=== PATIENT | female | born 1945 | race Hispanic/Latino ===

== ENCOUNTER → 2018-12-08 | Outpatient (CLI) | payer OTHER, MEDICARE ==
[~2018-12-08] VITALS: Ht 154.9 cm; Wt 59.0 kg
[~2018-12-08] MED LIST: REGADENOSON 0.4 MG/5 ML PF SYG IVP SCH
== END | disposition home or self-care (01) ==
LOC: SHCH 07:34
PROVIDERS: ATTEND Internal Medicine Cardiovascular Disease
DX: I25.9 Chronic ischemic heart disease, unspecified (principal); I25.10 Atherosclerotic heart disease of native coronary artery without angina pectoris
CPT/HCPCS: 78452; 93017; 96374; A9500 ×2; J2785

== ENCOUNTER 2024-11-28 15:50 | Emergency (ER) | payer OTHER, MEDICARE ==
[~2024-11-28] VITALS: Ht 157.5 cm; Wt 61.2 kg
[2024-11-28 17:27] LABS: BASOPHILS # (AUTO) 0.04 K/uL (0.00-0.20); BASOPHILS % (AUTO) 0.5 % (0.0-5.0); EOSINOPHILS # (AUTO) 0.21 K/uL (0.00-0.70); EOSINOPHILS % (AUTO) 2.9 % (0.0-8.0); HEMATOCRIT 36.6 % (36-48); IMMATURE GRANULOCYTE ABSOLUTE 0.02 K/uL (0-1); LYMPHOCYTES # (AUTO) 2.2 K/uL (1.0-4.8); LYMPHOCYTES % (AUTO) 30.3 % (21.0-51.0); MEAN CORPUSCULAR HEMOGLOBIN 26.9 pg (27.0-33.0); MEAN CORPUSCULAR HGB CONC 31.1 g/dL (32.0-36.0); MEAN CORPUSCULAR VOLUME 86.3 fL (79-99); MONOCYTES # (AUTO) 0.8 K/uL (0.1-1.0); MONOCYTES % (AUTO) 10.9 % (3.0-13.0); NEUTROPHILS # (AUTO) 4.1 K/uL (1.8-7.7); NEUTROPHILS % (AUTO) 55.1 % (40.0-77.0); PLATELET COUNT (AUTO) 232 K/uL (130-400); RED BLOOD CELL COUNT(AUTO) 4.24 MIL/uL (4.00-5.50); RED CELL DISTRIBUTION WIDTH 14.4 % (11.0-15.5); WHITE BLOOD COUNT (AUTO) 7.4 K/uL (4.8-10.8)
--- NOTE | 2024-11-28 17:30 | ERN ---
General Chief Complaint: Hand Problem/Injury Stated Complaint: SWOLLEN RIGHT HAND Time Seen by MD: 16:00 History of Present Illness Initial Comments This is a case of a 78-year-old female with a past medical history of diabetes mellitus, arthritis, high cholesterol, CAD who presented to the ER with the complaints of constant right hand swelling and pain since 1 month. She states that she has been diagnosed with carpal tunnel syndrome past month and was given corticosteroid shots for pain which provided no relief. She also mentioned experiencing intermittent neck pain. She denies fever, chills, headache, nausea, vomiting, chest pain, palpitations, abdominal pain, constipation/diarrhea, numbness/tingling sensations in all extremities. Allergies: Coded Allergies: No Known Drug Allergies (Unverified Allergy, Unknown, 12/07/18) Past Medical History Past Medical History: Arthritis Past Surgical History: Other ROS Dictation CONSTITUTIONAL: No chills, no fever, no weakness, no diaphoresis, no malaise, right hand swelling and pain. HEAD/FACE: No signs of trauma. EENT: No eye pain, no blurred vision, no tearing, no double vision, no ear pain, no ear discharge, no nose pain, no nasal congestion, no throat pain, no throat swelling, no mouth pain. RESPIRATORY: No cough, no orthopnea, no SOB, no stridor, no wheezing. CARDIOVASCULAR: No chest pain, no edema, no palpitations, no syncope. GASTROINTESTINAL/ABDOMINAL: No abdominal pain, no constipation, no diarrhea, no nausea, no vomiting. GENITOURINARY: No abnormal discharge, no dysuria, no frequent urination, no hematuria. No complaints of pain in the genitals. MUSCULOSKELETAL: No back pain, no gout, no joint pain, no joint swelling, no muscle pain, no muscle stiffness, intermittent mild neck pain. INTEGUMENTARY: No change in color, no change in hair/nails, no dryness, no lesion, no lumps, no rash. NEUROLOGICAL/PSYCH: No anxiety, not depressed, no emotional problem, no headache, no numbness, no pre-existing deficit, no history of seizures, no tremors, no weakness. HEMATOLOGIC/LYMPHATIC: Not anemic, no history of blood clots, no apparent bleeding, no bruising, glands not swollen. All Systems Negative, Except as Noted. Physical Exam Physical Exam Dictation Physical Exam Dictation VITAL SIGNS: Reviewed. GENERAL APPEARANCE: Alert, oriented x3, no acute distress HEAD AND FACE: Non-traumatic. EYES: PERRL, pink conjunctivas, eyelid no trauma, anterior chamber clear. EARS: Pinnas intact and no signs of trauma or erythema. Ear canals clear and no discharge. TMs no erythema. NOSE: No discharge, no bleeding. OROPHARYNX: Mouth normal, teeth no caries, tongue pink. Pharynx clear, no erythema. Tonsils no exudates, no abscesses noted. Mucous membrane moist. NECK: Supple, non-tender, no thyromegaly, no masses, no JVD, no bruits. BREAST: Deferred. CHEST: No tenderness, no crepitus, no paradoxical movement, no retractions. LUNGS: Clear, well-ventilated, symmetric, no rales, no wheezing, no rhonchi, no stridor, good breath sounds bilaterally. HEART: Regular rate, regular rhythm, no murmur, no gallops. VASCULAR: No peripheral edema. ABDOMEN: Soft, positive bowel sounds, nondistended, no guarding, nontender, no rebound, no masses no hepatomegaly, no splenomegaly, no Denney's sign, no hernias. RECTAL: Deferred. GENITAL: Deferred. NEUROLOGICAL: Normal speech, gross motor function intact, gross sensory function intact. MUSCULOSKELETAL: Neck nontender, full range of motion, back nontender, full range of motion. EXTREMITIES: Right hand swelling, paleness noted , full range of motion. SKIN: Color pink, dry, no turgor, no rash, no lacerations, no abrasions, no contusions. LYMPHATICS: Deferred. Results Laboratory and Microbiology Lab and Micro Result Laboratory Tests Test 11/28/24 17:20 White Blood Count 7.4 K/uL (4.8-10.8) Red Blood Count 4.24 MIL/uL (4.00-5.50) Hemoglobin 11.4 g/dL (12.0-16.0) L Hematocrit 36.6 % (36-48) Mean Corpuscular Volume 86.3 fL (79-99) Mean Corpuscular Hemoglobin 26.9 pg (27.0-33.0) L Mean Corpuscular Hemoglobin Concent 31.1 g/dL (32.0-36.0) L Red Cell Distribution Width 14.4 % (11.0-15.5) Platelet Count 232 K/uL (130-400) Mean Platelet Volume 11.6 fL (7.5-10.5) H Immature Granulocyte % (Auto) 0.3 % (0-1) Neutrophils (%) (Auto) 55.1 % (40.0-77.0) Lymphocytes (%) (Auto) 30.3 % (21.0-51.0) Monocytes (%) (Auto) 10.9 % (3.0-13.0) Eosinophils (%) (Auto) 2.9 % (0.0-8.0) Basophils (%) (Auto) 0.5 % (0.0-5.0) Neutrophils # (Auto) 4.1 K/uL (1.8-7.7) Lymphocytes # (Auto) 2.2 K/uL (1.0-4.8) Monocytes # (Auto) 0.8 K/uL (0.1-1.0) Eosinophils # (Auto) 0.21 K/uL (0.00-0.70) Basophils # (Auto) 0.04 K/uL (0.00-0.20) Absolute Immature Granulocyte (auto 0.02 K/uL (0-1) Nucleated Red Blood Cells 0.0 % (0.0-0.19) Sodium Level 143 mmol/L (136-145) Potassium Level 4.0 mmol/L (3.5-5.1) Chloride Level 108 mmol/L (101-111) Carbon Dioxide Level 25 mmol/L (21-32) Blood Urea Nitrogen 16 mg/dL (7-18) Creatinine 0.9 mg/dL (0.5-1.0) Glomerular Filtration Rate Calc 66 mL/min (>90) Random Glucose 158 mg/dL (70-105) H Total Calcium 9.1 mg/dL (8.5-10.1) MDM MDM Potential differential diagnoses include: Carpal tunnel syndrome Cervical radiculopathy Arterial insufficiency Infection Assessment: We will order CBC was done in order to to rule any anemia, infections and to evaluate the overall health of the patient. BMP was ordered in order to assess various electrolytes, kidney function, liver function ,protein levels and blood glucose levels, I will re-evaluate the patient after treatment and diagnostic exams have returned to determine whether they require further testing, can be safely discharged home, or need admission for further treatment and evaluation. Given the social determinants of health affecting care, including literacy, access to medical care, prescription drug management, and [id number] drugs, I will ensure that treatment plans are tailored accordingly. Revaluation : PATIENT IS ALERT AWAKE AND ORIENTED. HEMODYNAMICALLY STABLE. LABS CBC, BMP ARE UNREMARKABLE. RIGHT HAND X-RAY RESULTED IN NO ACUTE FINDINGS. Disposition: PATIENT IS BEING DISCHARGED HOME ADVISED TO FOLLOW UP WITH PCP WITHIN 2-3 DAYS FOLLOW UP WITH ORTHOPAEDICIAN, OUTPATIENT FOR FURTHER EVALUATION MINIMIZE REPETITIVE WRIST MOVEMENTS. WEAR A SPLINT INSTRUCTED ESPECIALLY DURING SLEEP TO REDUCE SYMPTOMS. MONITOR FOR SYMPTOMS LIKE INCREASED PAIN, SWELLING OR REDNESS, FEVER OR CHILLS, NUMBNESS OR TINGLING THAT WORSENS AND SEEK IMMEDIATE MEDICAL ATTENTION IN SUCH SCENARIO ED Course Orders Procedure Category Date Status Time Cbc With Differential LAB 11/28/24 Complete 17:05 Basic Metabolic Panel LAB 11/28/24 Complete 17:05 Hand 3+Vws Rt RAD 11/28/24 Taken 17:05 Ketorolac PHA 11/28/24 Complete Tromethamine 15mg/Ml 17:30 Current Medications Medications (Trade) Dose Ordered Sig/Albert Route PRN Reason Start Time Stop Time Status Last Admin Dose Admin Ketorolac Tromethamine (toRADol) 15 mg ONCE ONCE IM 11/28/24 17:30 11/28/24 17:31 DC 11/28/24 17:39 Vital Signs Date Time Temp Pulse Resp B/P (MAP) Pulse Ox O2 Delivery O2 Flow Rate FiO2 11/28/24 17:05 99.0 100 20 156/129 97 Room Air* 0 21 11/28/24 16:35 99.0 100 20 156/129 97 Room Air DX & DISP Disposition: Discharge Departure Impression: Primary Impression: Swelling of right hand Critical Time: 30 minutes Condition: Stable Referrals: ORLANDO GRADY MD (PCP) SWETHA DOYLE MD ATTESTATION BY PHYSICIAN I have seen and examined the patient. I reviewed the documentation, medical decision making, and treatment plan as noted by the RESIDENT above. I agree with the findings and plan of care. JOSELO NOLAN MD Nov 28, 2024 17:30
[2024-11-28 17:34] LABS: CREATININE 0.9 mg/dL (0.5-1.0)
[2024-11-28] MEDS: ketOROlac 15MG/ML VIAL (15MG/ML) IM ONE (17:39)
--- NOTE | 2024-11-28 18:46 | HMCIMG ---
HAND 3+VWS RT HISTORY: Hand pain COMPARISON: None TECHNIQUE: 3 images of right hand were obtained. FINDINGS: Deformity is seen of the head of the fourth proximal phalanx may be related to fracture of indeterminate age. Extensive interphalangeal joint space narrowing is seen. Radiocarpal joint space narrowing is seen. These findings are most likely related to arthritic process. There is no acute displaced fracture or dislocation. Degenerative changes are seen. IMPRESSION: 1. Findings as described above.
--- NOTE | 2024-11-28 18:47 | NUR ---
RT WRIST SPLINT APPLIED, PT TOLERATED WELL
[2024-11-28 18:55] VITALS: BP 145/105; PULSE 95; RESP 20; TEMP 98.8; O2SAT 97
== END 2024-11-28 18:58 | disposition home or self-care (01) ==
LOC: EDH 15:50
DX: M79.89 Other specified soft tissue disorders (principal); E11.41 Type 2 diabetes mellitus with diabetic mononeuropathy; E78.00 Pure hypercholesterolemia, unspecified; I25.10 Atherosclerotic heart disease of native coronary artery without angina pectoris; M19.90 Unspecified osteoarthritis, unspecified site; Z98.890 Other specified postprocedural states
CPT/HCPCS: 99284; 80048; 85025; 36415; 73130; 29125; 96372; J1885